=== PATIENT | female | born 1970 | race Caucasian/White ===

== ENCOUNTER 2021-08-03 16:33 | Inpatient (IN) | payer BC ==
[~2021-08-03] VITALS: Ht 175.3 cm; Wt 73.9 kg
--- NOTE | 2021-08-03 16:50 | NUR ---
BIBRA 84 FROM HOME C/O L KNEE PAIN AND SWELLING STARTED YESTERDAY "IM CONCERN ABOUT BLOOD CLOT". RATES HORACIO LOWER LEG PAIN /10. IN ROOM AIR AND DENIES SOB. RESPIRATION REGULAR AND UNLABORED. THE PATIENT NOTED TO HAVE RIGHT UPPER CHEST PORT A CATH. ATTACHED TO THE MONITOR. WARM BLANKET PROVIDED FOR CONFORT. WILL CONTINUE TO MONITOR THE PATIENT.
--- NOTE | 2021-08-03 17:15 | NUR ---
HR CONSULTANT AT THE BEDSIDE
--- NOTE | 2021-08-03 17:15 | NUR ---
ACCESSED RIGHT UPPER CHEST LAWANDA CATH PER POLICY. BLOOD SPECIMEN COLLECTED AND SENT TO THE LAB. THE LINE IS SALINE LOCKED.
[2021-08-03] MEDS ORDERED: IV NS 0.9% 1,000 ML BAG IV ONE (17:30)
[2021-08-03 17:51] LABS: BASOPHILS % (AUTO) 0.6 % (0.0-2.0); EOSINOPHILS % (AUTO) 0.7 % (0.0-6.0); HEMATOCRIT 21 % (33-45); HEMOGLOBIN 7.2 g/dL (11.5-14.8); LYMPHOCYTES # (AUTO) 0.3 K/uL (0.8-4.8); LYMPHOCYTES % (AUTO) 24.1 % (20.0-44.0); MEAN CORPUSCULAR HGB CONC 34 g/dl (31.0-36.0); MEAN CORPUSCULAR VOLUME 112 fL (82-100); MONOCYTES # (AUTO) 0.1 K/uL (0.1-1.30); MONOCYTES % (AUTO) 4.3 % (2.0-12.0); NEUTROPHILS # (AUTO) 0.9 K/uL (1.8-8.9); NEUTROPHILS % (AUTO) 70.3 % (43.0-81.0)
[2021-08-03 17:56] LABS: CALCIUM, SERUM 8.9 mg/dL (8.5-10.1); CARBON DIOXIDE 15 mmol/L (21-32); CHLORIDE 95 mmol/L (98-107); CREATININE 2.5 mg/dL (0.6-1.3); GLUCOSE 65 mg/dL (74-106); POTASSIUM 5.2 mmol/L (3.5-5.1)
[2021-08-03 17:57] LABS: UREA NITROGEN, BLOOD 86 mg/dL (7-18)
[2021-08-03 17:58] LABS: SODIUM SERUM 126 mmol/L (136-145)
[2021-08-03 18:01] LABS: ALANINE AMINOTRANSFERASE 29 U/L (12-78); ALBUMIN 2.3 g/dL (3.4-5.0); ALKALINE PHOSPHATASE 511 U/L (46-116); ASPARTATE AMINOTRANSFERASE 229 U/L (15-37); BILIRUBIN,DIRECT 2.4 mg/dL (0.0-0.2); BILIRUBIN,TOTAL 3.1 mg/dL (0.2-1.0); RED BLOOD CELL COUNT(AUTO) 1.88 MIL/uL (4.0-5.2); TOTAL PROTEIN, SERUM 6.1 g/dL (6.4-8.2); WHITE BLOOD COUNT (AUTO) 1.3 K/uL (4.3-11.0)
--- NOTE | 2021-08-03 18:01 | NUR ---
US TECH AT THE BEDSIDE
[2021-08-03 18:02] LABS: PLATELET COUNT (AUTO) 14 K/uL (150-450)
[2021-08-03] MEDS ORDERED: VANCOMYCIN 1 GM in IV D5W 250 ML IV ONE (18:30)
[2021-08-03] MEDS ORDERED: MEROPENEM 1 G in IV NS 0.9% 100 ML IV ONE (18:30)
[2021-08-03] MEDS ORDERED: IV LR 1000 ML 1,000 ML BAG IV ONE (18:30)
[2021-08-03 18:32] LABS: BAND % (MANUAL) 16 % (0.0-5.0); EOSINOPHILS % (MANUAL) 2 % (0-4); LYMPHOCYTES % (MANUAL) 18 % (16-48); MONOCYTES % (MANUAL) 7 % (0-11.0); NEUTROPHILS % (MANUAL) 57 (42-76)
[2021-08-03] MEDS ORDERED: TRAZ-182 PO (18:42)
[2021-08-03] MEDS ORDERED: OXYC5TAB3 PO (18:42)
[2021-08-03] MEDS ORDERED: PANT40TA49 PO (18:42)
--- NOTE | 2021-08-03 18:59 | NUR ---
MIDLINE ORDERED BY DR SOLITARIO. THE ORDER IS READ BACK, VERIFIED. NOTED AND CARRIED OUT.
[2021-08-03] MEDS ORDERED: IV CHEMO IV (19:00)
[2021-08-03] MEDS ORDERED: OXYC10TA59 PO (19:00)
[2021-08-03] MEDS ORDERED: HYDR4TAB57 PO (19:00)
--- NOTE | 2021-08-03 19:09 | NUR ---
DR SOLITARIO MADE AWARE OF BP 82/43 AND HR 118. NO NEW ORDER AT THIS TIME.
--- NOTE | 2021-08-03 19:10 | NUR ---
RT AT THE BEDSIDE
--- NOTE | 2021-08-03 19:10 | NUR ---
WAITING FOR MIDLINE INSERTION IN ORDER TO ADMINISTER REST OF ORDERED MEDS. DR SOLITARIO AWARE THAT PORT A CATH INFUSION IS GOING SLOW.
--- NOTE | 2021-08-03 19:21 | NUR ---
PAGED EPIC SOLUTION MAKE UP OPERATOR
--- NOTE | 2021-08-03 19:25 | NUR ---
COVID ANTIGEN SWAB DONE AND SENT TO THE LAB
--- NOTE | 2021-08-03 19:28 | NUR ---
MIDLINE NURSE AT PT'S BEDSIDE
[2021-08-03] MEDS ORDERED: MORPHINE SULFATE INJ 2 MG/ML DISP.SYRIN IV ONE (19:30)
--- NOTE | 2021-08-03 19:31 | NUR ---
REPORT GIVEN TO NURSE SHEPARD FOR CATHY
[2021-08-03] MEDS ORDERED: MEROPENEM 1 G VIAL IV ONE (19:34)
[2021-08-03] MEDS ORDERED: VANCOMYCIN 1 GM VIAL ONE (20:04)
--- NOTE | 2021-08-03 20:40 | NUR ---
VERBAL ORDER FOR FENTANYL 50MCG RECIEVED AND CARRIED OUT VIA L MIDLINE PER MD SOLITARIO
[2021-08-03] MEDS ORDERED: FENTANYL PF 100MCG/2ML AMPUL ONE (20:43)
--- NOTE | 2021-08-03 21:01 | NUR ---
F/C INSERTED WITH YELLOW URINE OUTPUT; PATENT AND INTACT.
[2021-08-03] MEDS ORDERED: Z GUARD REMEDY 4 OZ OINT TP PRN (21:30)
[2021-08-03] MEDS ORDERED: NOREPINEPHRINE 8 MG in IV NS 0.9% 242 ML IV PRN (21:30)
[2021-08-03] MEDS ORDERED: ONDANSETRON HCL/PF 4 MG/2 ML VIAL IVP PRN (21:30)
[2021-08-03] MEDS ORDERED: ACETAMINOPHEN 325 MG TABLET PO PRN (21:30)
[2021-08-03 21:46] LABS: BILIRUBIN,URINE SMALL (NEGATIVE); COLOR,URINE YELLOW (YELLOW); LEUKOCYTE ESTERASE ,URINE TRACE (NEGATIVE); NITRITE, URINE POSITIVE (NEGATIVE); PROTEIN,URINE >=300 mg/dl (NEGATIVE); UGLUCOSE NEGATIVE (NEGATIVE); UROBILINOGEN,URINE 0.2 EU/dL (0.2)
[2021-08-03 21:57] LABS: RBC,URINE 51-80 /HPF (0-2)
[2021-08-03 21:58] LABS: BACTERIA,URINE 2+ /HPF (None Seen); URINE AMORPHOUS URATE Many /HPF (None Seen)
--- NOTE | 2021-08-03 22:20 | NUR ---
BLOOD TRANSFUSION INITIATED AT 75ML HR VIA L MIDLINE . ALL TRANSFUSIONS PRECHECKS COMPLETED WITH EULOGIO GARCIA. ALL V/S STABLE AT START OF TRANSFUSION.
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
--- NOTE | 2021-08-03 22:59 | NUR ---
PAGED DR. FRIEDMAN AT [phone] AND WILL CALL BACK
--- NOTE | 2021-08-03 23:23 | NUR ---
ASSIGNED TO 253
[2021-08-03 23:43] LABS: CALCIUM, SERUM 8.8 mg/dL (8.5-10.1); CREATININE 2.6 mg/dL (0.6-1.3); POTASSIUM 5.7 mmol/L (3.5-5.1)
--- NOTE | 2021-08-03 23:58 | NUR ---
PAGED DR. FRIEDMAN AGAIN.
[2021-08-04] VITALS (60 sets, daily range): BP systolic 65–166; BP diastolic 24–78
--- NOTE | 2021-08-04 00:07 | NUR ---
REPORT GIVEN TO YESSY FOR CATHY
[2021-08-04] MEDS ORDERED: NOREPINEPHRINE 8MG/250ML RTU 0 ML IV ONE (00:25)
--- NOTE | 2021-08-04 00:25 | NUR ---
PT TRANSPORTED TO ROOM 253 ON ELECTRONIC SECURITY TECHNICIAN PER ACLS PROTOCOL WITHOUT INCIDENT. ALL PATIENT BELONGINGS LEFT AT BEDSIDE AND PT CHART LEFT IN NURSES STATION WITH BAND SALVAGER.
--- NOTE | 2021-08-04 00:33 | NUR ---
GANG BOSS NOTE REC'D PT FROM ER, PLACED ON MONITOR. A/O X2-3 PT IS DROWSY SLOW IN SPEECH. BUT EASILY AROUSABLE. VITAL SIGNS BP IN THE 70S, WILL START EWA PT HR IS 130. TEMP 99.4. DENIES ALLERGIES. NO DISTRESS NOTED, PT IS ON 3L NASAL CANNULA O2 SAT 95% DULCE MARIA MIDLINE NOTED, FLUSHED, BLOOD RETURN. RIGHT SIDE PORT A CATH NOTED, PT LAST CHEMO WAS 3 DAYS AGO. HX OF METASTATIC BREAST CANCER. PT HAS PITTING EDEMA NOTED ON LOWER ABD, PANNUS, AND LOWER EXTREMITIES, NOTED TO HAVE REDNESS ON SACRUM WITH BRUISING ON HIPS NOTED. ALBERTO CATH IN PLACE. SAFETY MEASURES IN PLACE. HYGIENE PROVIDED. ALL NEEDS ATTENDED AT THIS TIME. CALL LIGHT WITHIN REACH.
[2021-08-04] MEDS ORDERED: PHENYLEPHRINE 10 MG/ML VIAL ONE (00:35)
--- NOTE | 2021-08-04 00:40 | NUR ---
DISPLAY AND BANNER DESIGNER PT'S BP DROPPED TO 77/48, WITH HR 130. KANDACE VÁSQUEZ DNP WAS NOTIFIED & ORDERED TO START PHENYLEPHRINE DRIP INSTEAD OF LEVOPHED. ALSO HE WAS NOTIFIED THAT PT IS OLIGURIC WITH + 3 EDEMA ON BLE. HILARIO VÁSQUEZ CONFIRMED TO START LR IV @ 125 ML/HR.
[2021-08-04] MEDS: PHENYLEPHRINE 100 MG in IV NS 0.9% 240 ML IV PRN ×4 (00:52→23:50)
[2021-08-04] MEDS: IV LR 1000 ML 1,000 ML IV PRN ×2 (00:57→08:04)
[2021-08-04] MEDS ORDERED: FENTANYL PF 100MCG/2ML AMPUL IV PRN (01:00)
--- NOTE | 2021-08-04 01:40 | NUR ---
RN NOTE DURING ASSESSMENT, DIFFICULT TO CONTINUE PT NOTED TO BE CONSTANTLY REPEATING QUESTIONS OR PHRASES, PT HAVING DIFFICULTY FINDING WORDS. UNSURE OF PT BASELINE. PT IS AWARE OF WHAT IS BEING ASKED, BUT IS COMPLETELY UNAWARE THAT SHE IS REPEATING THE PHRASE
--- NOTE | 2021-08-04 02:17 | NUR ---
RN NOTE CALLED BROTHER SUSAN FOR INFORMATION PT IS DROWSY/LETHARGIC CANNOT TOLERATE ASSESSMENT HX QUESTIONS AT THIS TIME. BROTHER DID NOT ANSWER. WILL CALL AGAIN LATER. SUSAN JOHNSON [phone]
[2021-08-04] MEDS ORDERED: NOREPINEPHRINE 8MG/250ML RTU 250 ML IV ONE (03:27)
[2021-08-04] MEDS: NOREPINEPHRINE 8 MG in IV NS 0.9% 242 ML IV PRN ×2 (03:33→08:43)
[2021-08-04] MEDS ORDERED: MEROPENEM 1 G VIAL IV ONE (04:40)
[2021-08-04 04:56] LABS: BASOPHILS # (AUTO) 0.2 K/uL (0.0-0.2); EOSINOPHILS % (AUTO) 0.4 % (0.0-6.0); HEMATOCRIT 25 % (33-45); HEMOGLOBIN 8.2 g/dL (11.5-14.8); LYMPHOCYTES # (AUTO) 0.9 K/uL (0.8-4.8); MEAN CORPUSCULAR HGB CONC 33 g/dl (31.0-36.0); MEAN CORPUSCULAR VOLUME 116 fL (82-100); MONOCYTES % (AUTO) 2.3 % (2.0-12.0); NEUTROPHILS # (AUTO) 0.9 K/uL (1.8-8.9); RED BLOOD CELL COUNT(AUTO) 2.13 MIL/uL (4.0-5.2)
[2021-08-04] MEDS ORDERED: MEROPENEM 1 G in IV NS 0.9% 100 ML IV SCH (05:00)
[2021-08-04 05:24] LABS: BASOPHILS % (AUTO) 8.3 % (0.0-2.0); PLATELET COUNT (AUTO) 16 K/uL (150-450)
[2021-08-04 05:28] LABS: ALBUMIN 2.3 g/dL (3.4-5.0); BILIRUBIN,TOTAL 3.2 mg/dL (0.2-1.0); CALCIUM, SERUM 9.6 mg/dL (8.5-10.1); CREATININE 2.9 mg/dL (0.6-1.3); MAGNESIUM 2.6 mg/dL (1.8-2.4); PHOSPHORUS 5.5 mg/dL (2.5-4.9); POTASSIUM 5.9 mmol/L (3.5-5.1); TOTAL PROTEIN, SERUM 6.4 g/dL (6.4-8.2)
--- NOTE | 2021-08-04 06:50 | NUR ---
RN NOTE PT PLATELET IS 16, HIGHER THAN YESTERDAY, WILL ENDORSE TO DAY SHIFT Addendum: 08/04/21 at 0744 by YESSY MACK RN BUN ENDORSED, WAITING FOR NEPHRO CONSULT
--- NOTE | 2021-08-04 07:30 | NUR ---
NOVELTY BALLOON ASSEMBLER AND PACKER OPENING NOTES PATIENT RECEIVED IN BED AND ON 3 LITERS 02 VIA N/C. PATIENT NOTED WITH AGITATION AND RESTLESSNESS. PATIENT WILL BE MONITORED. CALL LIGHT WITH IN REACH. WILL MONITOR.HOB ELEVATED. BED IS IN LOWEST AND LOCKED POSITION
--- NOTE | 2021-08-04 09:00 | NUR ---
Patient restless and anxious and removing her gown and iv tubing. Received order for Soft wrist restraints. Patient provided non medical nursing itnerventions but to no avail prior to restraints. Patient will be monitored.
[2021-08-04 09:10] LABS: BAND % (MANUAL) 23 % (0.0-5.0); LYMPHOCYTES % (MANUAL) 13 % (16-48); NEUTROPHILS % (MANUAL) 50 (42-76); REACTIVE LYMPHOCYTES 12 % (0-0)
[2021-08-04 09:11] LABS: MONOCYTES % (MANUAL) 2 % (0-11.0)
[2021-08-04] MEDS ORDERED: IV NS 0.9% 1,000 ML IV ONE (10:06)
[2021-08-04] MEDS ORDERED: IV LR 1000 ML 1,000 ML IV ONE (10:15)
--- NOTE | 2021-08-04 10:15 | NUR ---
Patient noted with bp of 45/25. On levo 0.5 mcg and jaspal at 3 mcg.Levo increased to 0.[address] Hollis and per MD to give ns BOLUS 1 liter which was later changed to Lactated ringer 1 liter bolus. Md aware that patient is on LR at 125 cc/hour. Per md to add hydrocortisone 100 mg iv tid and add vasopressin when patient is maxedout on levo and jaspal drips. Orders noted and carried out.
[2021-08-04] MEDS: HYDROCORTISONE SOD SUCCINATE 100 MG/2 ML VIAL IV SCH ×2 (11:58→18:49)
[2021-08-04] MEDS: NOREPINEPHRINE 32 MG in IV NS 0.9% 218 ML IV PRN ×2 (12:26→20:57)
--- NOTE | 2021-08-04 14:28 | NUR ---
Patient seen by MD Tabares and ordered to d/c lactated ringer Per md he will contact family
[2021-08-04] MEDS ORDERED: SODIUM BICARBONATE SYR 50 MEQ/50 ML DISP.SYRIN IV ONE (14:30)
[2021-08-04] MEDS ORDERED: INSULIN REGULAR, HUMAN 100 UNIT/ML 10 ML VIAL IV ONE (15:00)
[2021-08-04] MEDS ORDERED: DEXTROSE 50%-WATER 50 ML DISP.SYRIN IVP ONE (15:00)
--- NOTE | 2021-08-04 15:03 | NUR ---
MD Tabares ordered for insulin 10 units 1v and dextrose iv. When greeting card writer checked BS noted with 21mg/dl and then repeated to 29 mg/dl. Dextrose iv given. Will recheck and Informed MD Tabares. To hold off on insulin for now
[2021-08-04] MEDS: Sodium Bicarbonate 150 MEQ in IV D5W 1,000 ML IV SCH (15:35)
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
[2021-08-04] MEDS: TBO-FILGRASTIM 480 MCG/0.8 ML ML SQ SCH (18:38)
[2021-08-04] MEDS: MORPHINE SULFATE INJ 2 MG/ML DISP.SYRIN IV PRN (18:39)
[2021-08-04 18:53] LABS: D-DIMER 25.35 mg/L(FEU (0.17-0.50)
--- NOTE | 2021-08-04 19:56 | NUR ---
HOSPITALITY RECRUITER CLOSING NOTES Patient is alert and oriented x 1-2. Breathing even and labored on nasal cannula 3 liters with 02 of 99%. Patient noted with osuna output of 5cc. HOB kept elevated. Patient NPO. Levo and Talha drips running to right upper chest port a cath and Na+ bicarb drip running at 100 cc/hour. Patient currently in stable condition. Endorsed to next shift for CATHY.
[2021-08-04] MEDS: MEROPENEM 1 G in IV NS 0.9% 100 ML IV SCH (21:23)
[2021-08-04] MEDS: AZITHROMYCIN 500 MG in IV D5W 250 ML IV SCH (21:55)
[2021-08-04] MEDS: MICAFUNGIN SODIUM 100 MG in IV NS 0.9% 100 ML IV SCH (22:57)
--- NOTE | 2021-08-04 23:10 | NUR ---
RT NOTE ABG DONE, RESULTS REPORTED TO RADHA KRISHNAMURTHY AND CHARGE NURSE MATILDE. NORI NOTED AT 6.1. AWAITING FURTHER ORDERS.
--- NOTE | 2021-08-04 23:23 | NUR ---
RN NOTE PT BP TRENDING LOW 80S, ORDERS TO KEEP MAP >65 CONFIRMED WITH DEPUTY PROBATION OFFICER Dandy VÁSQUEZ. PT WORK OF BREATHING INCREASED, LABORED. ABG DONE. RESULTS RECEIVED, INFORMED DEPUTY PROBATION OFFICER OF PT CONDITION AND RESULTS OF PH OF 7.1 AND HCO3 6.1 PT IS ON SODIUM BICARB, NOTIFIED Dandy VÁSQUEZ, PT SO2 IS 94. NO NEW ORDERS REC'D
[2021-08-04] MEDS ORDERED: VASOPRESSIN INJ 20 UNIT/ML VIAL ONE (23:55)
[2021-08-05] VITALS (58 sets, daily range): BP systolic 38–122; BP diastolic 17–71
[2021-08-05 01:05] LABS: ABG BASE EXCESS -13.1 mmol/L; ABG PH 7.319 (7.350-7.450); ABG PO2 82.9 mmHg (75.0-100.0); COHb 0.2 % (0.5-1.5); MetHb 0.6 % (0.0-1.5); O2Hb 93.9 % (94.0-97.0); SITE, ABG Left Radial; VENT MODE, BG 21% ROOM AIR
[2021-08-05 02:26] LABS: ABG BASE EXCESS -21.1 mmol/L; ABG OXYGEN SATURATION 65.4 % (92.0-98.5); ABG PCO2 21.6 mmHg (35.0-45.0); ABG PH 7.106 (7.350-7.450); ABG PO2 40.6 mmHg (75.0-100.0); COHb 0.2 % (0.5-1.5); MetHb 0.3 % (0.0-1.5); O2Hb 65.1 % (94.0-97.0); SITE, ABG Other; VENT MODE, BG 2L NC
[2021-08-05] MEDS: Sodium Bicarbonate 150 MEQ in IV D5W 1,000 ML IV SCH ×2 (03:24→16:02)
[2021-08-05 03:27] LABS: ABG BASE EXCESS -21.5 mmol/L; ABG OXYGEN SATURATION 94.9 % (92.0-98.5); ABG PCO2 19.5 mmHg (35.0-45.0); ABG PH 7.114 (7.350-7.450); ABG PO2 94.8 mmHg (75.0-100.0); COHb 0.3 % (0.5-1.5); MetHb 0.3 % (0.0-1.5); O2Hb 94.3 % (94.0-97.0); SITE, ABG Right Brachial; VENT MODE, BG N/C 40%
[2021-08-05] MEDS: NOREPINEPHRINE 32 MG in IV NS 0.9% 218 ML IV PRN ×3 (04:03→18:09)
[2021-08-05 04:56] LABS: BASOPHILS % (AUTO) 0.3 % (0.0-2.0); EOSINOPHILS % (AUTO) 0.7 % (0.0-6.0); HEMATOCRIT 23 % (33-45); HEMOGLOBIN 7.3 g/dL (11.5-14.8); LYMPHOCYTES # (AUTO) 1.1 K/uL (0.8-4.8); LYMPHOCYTES % (AUTO) 20.4 % (20.0-44.0); MEAN CORPUSCULAR HGB CONC 33 g/dl (31.0-36.0); MEAN CORPUSCULAR VOLUME 118 fL (82-100); MONOCYTES # (AUTO) 0.1 K/uL (0.1-1.30); MONOCYTES % (AUTO) 1.9 % (2.0-12.0); NEUTROPHILS % (AUTO) 76.7 % (43.0-81.0); WHITE BLOOD COUNT (AUTO) 5.2 K/uL (4.3-11.0)
--- NOTE | 2021-08-05 05:00 | NUR ---
RN NOTE INCREASED WORK OF BREATHING, LABORED, NOTIFIED DISHCLOTH FOLDER, ORDERS FOR 1 AMP BICARB AND ABG FOR THE MORNING
[2021-08-05 05:09] LABS: CALCIUM, SERUM 8.2 mg/dL (8.5-10.1); CREATININE 3.1 mg/dL (0.6-1.3)
--- NOTE | 2021-08-05 05:55 | NUR ---
RT NOTE PLACED PT ON 100% NONREBREATHER MASK @ THIS TIME. RADHA KRISHNAMURTHY NOTIFIED.
[2021-08-05] MEDS ORDERED: SODIUM BICARBONATE SYR 50 MEQ/50 ML DISP.SYRIN IV ONE ×3 (06:00→13:30)
[2021-08-05 06:04] LABS: D-DIMER 31.78 mg/L(FEU (0.17-0.50)
[2021-08-05 06:05] LABS: RED BLOOD CELL COUNT(AUTO) 1.91 MIL/uL (4.0-5.2)
[2021-08-05 06:06] LABS: PLATELET COUNT (AUTO) 13 K/uL (150-450)
[2021-08-05 06:10] LABS: POTASSIUM 6.6 mmol/L (3.5-5.1)
--- NOTE | 2021-08-05 06:20 | NUR ---
TEXTED DR. GREENWOOD FOR MRI APPROVAL.
--- NOTE | 2021-08-05 06:24 | NUR ---
RN NOTE NOTIFIED ANIMAL BOUNTY HUNTER Dandy VÁSQUEZ CRITICAL PLATELET 13, INGEPRATIMA GILBERT ON CASE, HAS SEPARATE ORDERS POTASSIUM 6.6 CO2 8.7 BUN 87 AT THIS TIME ORDERS FOR SUPPOSITORY KAYEXELATE 30MG 1AMP D50 10 UNITS REG INSULIN 1 DOSE ALBUTEROL
--- NOTE | 2021-08-05 06:25 | NUR ---
MRI APPROVED, LICENSED AUDIOLOGIST TALITA NOTIFIED VIA TEXT.
[2021-08-05] MEDS ORDERED: ALBUTEROL FS 2.5 MG/3 ML VIAL.NEB NEB ONE (06:30)
[2021-08-05] MEDS ORDERED: SODIUM POLYSTYRENE SULFONATE 15 G/60 ML BOTTLE PO ONE (06:30)
[2021-08-05] MEDS ORDERED: ALBUTEROL FS 2.5 MG/3 ML VIAL.NEB NEB SCH (06:30)
[2021-08-05] MEDS ORDERED: DEXTROSE 50%-WATER 50 ML DISP.SYRIN IVP ONE ×2 (06:30→12:00)
[2021-08-05] MEDS ORDERED: INSULIN REGULAR, HUMAN 100 UNIT/ML 10 ML VIAL IV ONE ×2 (06:30→12:00)
[2021-08-05] MEDS: PHENYLEPHRINE 100 MG in IV NS 0.9% 240 ML IV PRN ×3 (06:58→21:54)
[2021-08-05] MEDS ORDERED: SODIUM POLYSTYRENE SULFONATE 15 G/60 ML BOTTLE RC ONE (07:00)
[2021-08-05 07:07] LABS: THYROID STIMULATING HORMONE 4.087 uIU/mL (0.358-3.74)
--- NOTE | 2021-08-05 07:20 | NUR ---
ICU/RN PT IS ON NRM AT 15L ,SAT O2-84%. HAS SOB.PT IS ALOC.RESPONDING ON PAIN STIMULATION .ON LEVOPHED AND NEOSYNEPHRINE DRIPS MAX DOSE.AFEBRILE. RESPONDING ON PAIN STIMULATION.F/C IN PLACE NO URINE OUTPUT.PT IS ANURIC.ON ACUTE RENAL FAILURE.HAS BREAST CA.MULTIPLY BRUISES NOTED ALL OVER THE BODY.SACRAL REDNESS.GENERELISED EDEMA PRESENT.
--- NOTE | 2021-08-05 07:50 | NUR ---
ICU/RN ABG DONE .DR MARY NOTIFIED.
--- NOTE | 2021-08-05 08:40 | NUR ---
ICU/RN 8:30 PT IS INTUBATED ORDERED.PLACED ON THE VENT.OG TUBE INSERTED.400ML OF GREEEN GASTRIC FLUIDS REMOVED. DIPRIVAN STARTED. CONTINUE MONITORING.
--- NOTE | 2021-08-05 09:07 | NUR ---
PT IS UNSTABLE, US EXAM CAN NOT BE DONE. WILL CHECK PT'S CONDITION LATER
[2021-08-05] MEDS: VASOPRESSIN INJ 40 UNIT in IV NS 0.9% 38 ML IV PRN ×2 (09:22→18:10)
[2021-08-05] MEDS: PROPOFOL 100 ML IV PRN ×2 (09:23→20:35)
[2021-08-05] MEDS: MEROPENEM 1 G in IV NS 0.9% 100 ML IV SCH ×2 (09:23→20:18)
[2021-08-05] MEDS: HYDROCORTISONE SOD SUCCINATE 100 MG/2 ML VIAL IV SCH ×3 (09:24→16:28)
[2021-08-05] MEDS: FOLIC ACID 1 MG TABLET PO SCH (09:42)
[2021-08-05] MEDS ORDERED: ETOMIDATE 2 MG/ML VIAL IV ONE ×2 (10:00→10:49)
[2021-08-05] MEDS ORDERED: ROCURONIUM BROMIDE 50 MG/5 ML IV ONE ×2 (10:00→10:49)
[2021-08-05] MEDS: MORPHINE SULFATE INJ 2 MG/ML DISP.SYRIN IV PRN (12:22)
[2021-08-05 12:30] LABS: C-REACTIVE PROTEIN 33.3 mg/dL (0.0-0.9)
[2021-08-05] MEDS ORDERED: PHYTONADIONE INJ 10 MG/1 ML AMPUL SQ ONE (15:00)
--- NOTE | 2021-08-05 15:00 | NUR ---
ICU/RN PT IS DNR NOW PER FAMILY.STILL ON 3 PRESSORS MAX DOSE. ANURIC.UNSTABLE TO HAVE HD . HD CATH NOT PLACED. DR ROSARIO TALK TO THE FAMILY. FAMILY AT BEDSIDE TAKE ALL BELONGING HOME. CONTINUE MONITORING
[2021-08-05 15:44] LABS: BAND % (MANUAL) 7 % (0.0-5.0); LYMPHOCYTES % (MANUAL) 2 % (16-48); MONOCYTES % (MANUAL) 5 % (0-11.0); NEUTROPHILS % (MANUAL) 86 (42-76)
[2021-08-05] MEDS: TBO-FILGRASTIM 480 MCG/0.8 ML ML SQ SCH (16:02)
[2021-08-05] MEDS ORDERED: SILVER SULFADIAZINE CREAM 25 GM TUBE TP PRN (17:00)
--- NOTE | 2021-08-05 19:05 | NUR ---
RECEIVED PT ON BED ORALLY INTUBATED, VENT SETTING PER MD FIO2 100% SPO2 93% PT IN DNR STATUS SVT ON TELE MONITOR >120 BPM, SEDATED WITH PROPOFOL @ 20 MCG/KG/MIN ON LEVOPHED @ 1 MCG/KG/MIN, NORSYNEPHRINE @ 3MCG/KG/MIN AND VASOPRESSIN @ 0.04 MCG/KG, VIA RIGHT CHEST PORTACATH, BP UNABLE TO MEASURE MANUAL AND AUTOMATIC, PT IN NaHCO3 DRIP VIA DULCE MARIA ML, ALBERTO CATHETER IN PLACE NO URINE OUTPUT, BED ON LOWEST POSITION AND LOCKED SIDE RAILS UP X2 WILL CONT TO MONITOR
--- NOTE | 2021-08-05 20:14 | NUR ---
PT BLOOD PRESSURE STILL UNABLE TO TAKE MANUALLY AND AUTOMATIC MOTTLED OF LOWER EXTREMITIES NOTED, AND BLISTER ON LEFT CALF
[2021-08-05] MEDS: AZITHROMYCIN 500 MG in IV D5W 250 ML IV SCH (20:48)
[2021-08-05] MEDS ORDERED: SILVER SULFADIAZINE CREAM 25 GM TUBE TP SCH (21:00)
[2021-08-05] MEDS ORDERED: VANCOMYCIN 1 GM in IV D5W 250ml IV SCH (21:00)
[2021-08-05] MEDS: MICAFUNGIN SODIUM 100 MG in IV NS 0.9% 100 ML IV SCH (22:58)
--- NOTE | 2021-08-05 23:34 | NUR ---
STILL UNABLE TO MEASURE PT BLOOD PRESSURE MANUALLY AND AUTOMATIC CUFF PT IS IN MAX RATE OF LEVOPHED, NEOSYNEPHRINE, AND VASOPRESSIN HR 110 WILL CONT TO MONITOR
[2021-08-06] MEDS: NOREPINEPHRINE 32 MG in IV NS 0.9% 218 ML IV PRN ×2 (00:36→10:07)
[2021-08-06 01:01] VITALS: BP 51/23
[2021-08-06] MEDS: Sodium Bicarbonate 150 MEQ in IV D5W 1,000 ML IV SCH (01:45)
--- NOTE | 2021-08-06 02:40 | NUR ---
PT ON BED STILL ORALLY INTUBATED, ON 3 PRESSOR MAX LEVOPHED @ 1 MCG/KG/MIN NEOSYNEPHRINE 3 MCG/KG/MIN AND VASOPRESSIN 0.04 MCG/HR BUT STILL UNABLE TO GET BP MANUALLY OR AUTOMATIC CUFF HR IS 958-96 SPO2 ON 60% ON FIO2 100% SUCTIONING WAS DONE BUT SPO2 STILL VERY LOW, ALL EXTREMITIES IS MOTTLED NOW AND PURPLISH IN COLOR PULSE IN EXTREMITIES DIMINISHED, PT STILL ON NaHCO3 DRIP, NO URINE OUTPUT, WILL CONT TO MONITOR THE PT Addendum: 08/06/21 at 0247 by LOKESH PALACIOS RN HR IS 90-96 BPM
[2021-08-06 04:38] LABS: BASOPHILS # (AUTO) 0.1 K/uL (0.0-0.2); BASOPHILS % (AUTO) 0.6 % (0.0-2.0); EOSINOPHILS % (AUTO) 0.2 % (0.0-6.0); LYMPHOCYTES # (AUTO) 0.2 K/uL (0.8-4.8); LYMPHOCYTES % (AUTO) 1.7 % (20.0-44.0); MEAN CORPUSCULAR HGB CONC 32 g/dl (31.0-36.0); MEAN CORPUSCULAR VOLUME 121 fL (82-100); MONOCYTES # (AUTO) 0.3 K/uL (0.1-1.30); MONOCYTES % (AUTO) 2.3 % (2.0-12.0); NEUTROPHILS # (AUTO) 12.3 K/uL (1.8-8.9); NEUTROPHILS % (AUTO) 95.2 % (43.0-81.0); WHITE BLOOD COUNT (AUTO) 12.9 K/uL (4.3-11.0)
[2021-08-06 04:59] LABS: HEMATOCRIT 19 % (33-45); HEMOGLOBIN 6.1 g/dL (11.5-14.8); PLATELET COUNT (AUTO) 10 K/uL (150-450); RED BLOOD CELL COUNT(AUTO) 1.56 MIL/uL (4.0-5.2)
[2021-08-06] MEDS: PHENYLEPHRINE 100 MG in IV NS 0.9% 240 ML IV PRN (05:13)
[2021-08-06 05:14] LABS: CALCIUM, SERUM 7.5 mg/dL (8.5-10.1); CREATININE 3.5 mg/dL (0.6-1.3); MAGNESIUM 2.4 mg/dL (1.8-2.4)
[2021-08-06 05:43] LABS: PHOSPHORUS 9.2 mg/dL (2.5-4.9)
[2021-08-06 05:56] LABS: D-DIMER 34.98 mg/L(FEU (0.17-0.50)
[2021-08-06] MEDS ORDERED: DEXTROSE 50%-WATER 50 ML DISP.SYRIN IVP ONE (06:30)
[2021-08-06] MEDS ORDERED: SODIUM POLYSTYRENE SULFONATE 15 G/60 ML BOTTLE PO ONE (06:30)
[2021-08-06] MEDS ORDERED: Calcium Gluconate 0.465 MEQ/ML VIAL IV ONE (06:30)
[2021-08-06] MEDS ORDERED: INSULIN REGULAR, HUMAN 100 UNIT/ML 10 ML VIAL IV ONE (06:30)
[2021-08-06 06:38] LABS: BAND % (MANUAL) 11 % (0.0-5.0); LYMPHOCYTES % (MANUAL) 2 % (16-48); MONOCYTES % (MANUAL) 1 % (0-11.0); NEUTROPHILS % (MANUAL) 86 (42-76)
--- NOTE | 2021-08-06 06:54 | NUR ---
REPORTED TO DR KEIRA MOSQUEDA HOSPITALIST ONCALL THAT PT HGB IS 6.1 HCT 19 PLT 10 K+ 7 BUN 83 CREA 3.5 AND PHOS 9.2 WITH ORDER FOR REGULAR INSULIN 10 UNITS IV X1, MEENA EXALATE 15GM X1, CALCIUM GLUCONATE 1 VIAL X1, D50 50 X1, AND TRANSFUSE 1 PRBC NOTED AND CARRIED OUT
[2021-08-06 08:06] LABS: CANCER AG, 15-3 32.9 U/mL (0.0-25.0); IMMUNOGLOBULIN G, SERUM 1037 mg/dL (586-1602); IMMUNOGLOBULIN M, SERUM 87 mg/dL (26-217)
[2021-08-06] MEDS: PROPOFOL 100 ML IV PRN (08:10)
[2021-08-06] MEDS: VASOPRESSIN INJ 40 UNIT in IV NS 0.9% 38 ML IV PRN (09:01)
[2021-08-06 09:07] LABS: IMMUNOGLOBULIN A, SERUM 216 mg/dL (87-352)
[2021-08-06 10:07] LABS: *ANA ANTI-CENTROMERE B AB <0.2 AI (0.0-0.9); *ANA ANTI-DNA(DS) AB, QN 1 IU/mL (0-9); *ANA ANTI-JO-1 <0.2 AI (0.0-0.9); *ANA ANTICHROMATIN ANTIBODY <0.2 AI (0.0-0.9); *ANA RNP ANTIBODIES <0.2 AI (0.0-0.9); *ANA SJOGREN'S ANTI-SS-A <0.2 AI (0.0-0.9); *ANA SJOGREN'S ANTI-SS-B 0.3 AI (0.0-0.9); *ANAANTI-SCLERODERMA-70 AB <0.2 AI (0.0-0.9); *ANASMITH AB <0.2 AI (0.0-0.9)
[2021-08-06] MEDS: HYDROCORTISONE SOD SUCCINATE 100 MG/2 ML VIAL IV SCH (10:08)
[2021-08-06] MEDS: FOLIC ACID 1 MG TABLET PO SCH (10:08)
[2021-08-06] MEDS: MEROPENEM 1 G in IV NS 0.9% 100 ML IV SCH (10:08)
--- NOTE | 2021-08-06 11:28 | NUR ---
RN NOTE FAMILY ALANIS AND PHYLLIS AT BESIDE AND ARE POA. THEY WOULD TO EXTUBATE. DR. FLOWERS ORDERED MORPHINE DRIP. FAMILY OKAY WITH MORPHINE ADMINISTRATION.
[2021-08-06] MEDS ORDERED: MORPHINE SULFATE PF DRIP 250 MG in IV D5W 240 ML IV PRN (11:30)
[2021-08-06] MEDS ORDERED: DC PROPOFOL WHEN EXTUBATED XX PRN (13:00)
--- NOTE | 2021-08-06 13:00 | NUR ---
ASYSTOLE ON MONITOR. NO PALPABLE PULSES. PUPILS FIXED AND DILATED. NO SPONTANEOUS RESPIRATION. PATIENT ON COMFORT CARE ONLY. PRONOUNCED.
--- NOTE | 2021-08-06 13:56 | NUR ---
RN NOTE PT EXTUBATED AT 1250 BY RT MIGUEL ANGEL. FAMILY AT BEDSIDE. MORPHINE DRIP PLACED PRIOR TO EXTUBATION. PT AT 1PM. CALLED [facility] AT [phone] REF #[id number]. I LEFT A MESSAGE TO [facility] ABOUT DONATING BODY PER PT REQUEST. [phone].
[2021-08-06 14:07] LABS: *SPE A/G RATIO 0.8 (0.7-1.7); *SPE ALPHA-1-GLOBULIN 0.3 g/dL (0.0-0.4); *SPE ALPHA-2-GLOBULIN 0.8 g/dL (0.4-1.0); *SPE BETA GLOBULIN 0.5 g/dL (0.7-1.3); *SPE M-SPIKE Not Observed g/dL (Not Observed)
[2021-08-07 10:09] LABS: ABG BASE EXCESS -18.8 mmol/L; ABG OXYGEN SATURATION 82.5 % (92.0-98.5); ABG PCO2 26.5 mmHg (35.0-45.0); ABG PH 7.134 (7.350-7.450); ABG PO2 57.1 mmHg (75.0-100.0); COHb 0.3 % (0.5-1.5); MetHb 0.6 % (0.0-1.5); O2Hb 81.8 % (94.0-97.0); SITE, ABG Other
[2021-08-07 10:11] LABS: ABG BASE EXCESS -16.8 mmol/L; ABG PCO2 27.5 mmHg (35.0-45.0); ABG PO2 59.1 mmHg (75.0-100.0); COHb 0.1 % (0.5-1.5); MetHb 0.4 % (0.0-1.5); O2Hb 85.6 % (94.0-97.0); SITE, ABG Other; VENT MODE, BG AC 26 450 100% +0
== END 2021-08-06 17:52 | DRG 871 ==
LOC: ER 16:37 → ICU 23:24
PROVIDERS: ADMIT Hospitalist; ATTEND Internal Medicine
PROC: 05HC33Z Insertion of Infusion Device into Left Basilic Vein, Percutaneous Approach (ICD-10-PCS; principal; 2021-08-03)
PROC: 5A1935Z Respiratory Ventilation, Less than 24 Consecutive Hours (ICD-10-PCS; 2021-08-05)
PROC: 0BH17EZ Insertion of Endotracheal Airway into Trachea, Via Natural or Artificial Opening (ICD-10-PCS; 2021-08-05)
PROC: 5A1D70Z Performance of Urinary Filtration, Intermittent, Less than 6 Hours Per Day (ICD-10-PCS; 2021-08-05)
DX: A41.50 Gram-negative sepsis, unspecified (principal); J18.9 Pneumonia, unspecified organism; N17.0 Acute kidney failure with tubular necrosis; R65.21 Severe sepsis with septic shock; G93.41 Metabolic encephalopathy; J96.01 Acute respiratory failure with hypoxia; G92.8 Other toxic encephalopathy; R64 Cachexia; C79.51 Secondary malignant neoplasm of bone; C78.7 Secondary malignant neoplasm of liver and intrahepatic bile duct; C79.31 Secondary malignant neoplasm of brain; E87.1 Hypo-osmolality and hyponatremia; E87.2 Acidosis; N39.0 Urinary tract infection, site not specified; D61.818 Other pancytopenia; J90 Pleural effusion, not elsewhere classified; J98.11 Atelectasis; E16.2 Hypoglycemia, unspecified; Z20.822 Contact with and (suspected) exposure to COVID-19; Z66 Do not resuscitate; C50.919 Malignant neoplasm of unspecified site of unspecified female breast; Z79.891 Long term (current) use of opiate analgesic; Z79.899 Other long term (current) drug therapy; E87.5 Hyperkalemia; Z92.21 Personal history of antineoplastic chemotherapy; D70.9 Neutropenia, unspecified; R74.01 Elevation of levels of liver transaminase levels; D70.1 Agranulocytosis secondary to cancer chemotherapy; T45.1X5A Adverse effect of antineoplastic and immunosuppressive drugs, initial encounter; Y92.9 Unspecified place or not applicable; D53.9 Nutritional anemia, unspecified; D69.6 Thrombocytopenia, unspecified; E86.1 Hypovolemia; E87.70 Fluid overload, unspecified; E88.09 Other disorders of plasma-protein metabolism, not elsewhere classified; E80.6 Other disorders of bilirubin metabolism
CPT/HCPCS: 31720; 36410; 36415; 36600; 70450-TC; 71045-TC; 76700-TC; 80048-TC; 80053-TC; 80061-TC; 80076-TC; 80202-TC; 81001; 82378; 82533; 82728-TC; 82784; 82962-TC; 83540-TC; 83605-TC; 83735-TC; 83880; 84100-TC; 84155; 84165; 84443-TC; 84478-TC; 85025-TC; 85396; 85730-TC; 86140-TC; 86225; 86235; 86300; 86334; 86431-TC; 86706; 86803; 86850-TC; 87040-TC; 87081-TC; 87086-TC; 87186-TC; 87340; 93971-TC; 94003-TC; 94762-TC; 94799-TC; C1750; C9803; G0378; J0456; J0610; J1447; J1720; J1815; J2185; J2248; J2270; J2274; J2370; J3010; J3370; J3430; J3490; J7030; J7050; J7060; J7070; J7120; P9016